=== PATIENT | female | born 1965 | race Two or more races ===

== ENCOUNTER 2024-05-13 23:34 | Emergency (ER) | payer OTHER ==
[~2024-05-13] VITALS: Ht 154.9 cm; Wt 62.6 kg
[2024-05-14] MEDS ORDERED: KETOROLAC TROMETHAMINE 60 MG VIAL IM STA (03:30)
[2024-05-14] MEDS ORDERED: KETOROLAC TROMETHAMINE 60 MG VIAL IM ONE (03:38)
[2024-05-14] MEDS ORDERED: KETO10TA2 PO (04:40)
[2024-05-14] MEDS ORDERED: CEPHALEXIN500 MG PO (04:42)
== END 2024-05-14 04:57 ==
LOC: ER 23:34
DX: S42.212A Unspecified displaced fracture of surgical neck of left humerus, initial encounter for closed fracture (principal); W18.39XA Other fall on same level, initial encounter; Y93.79 Activity, other specified sports and athletics; Y92.89 Other specified places as the place of occurrence of the external cause; S00.80XA Unspecified superficial injury of other part of head, initial encounter

== ENCOUNTER 2024-05-26 09:58 | Outpatient (CLI) | payer OTHER ==
[~2024-05-26 09:58] MED LIST: CEPHALEXIN500 MG PO; KETO10TA2 PO
== END 2024-05-26 10:08 | disposition home or self-care (01) ==
LOC: RAD 09:58
DX: S42.222A 2-part displaced fracture of surgical neck of left humerus, initial encounter for closed fracture (principal)